=== PATIENT | male | born 1945 | race Caucasian/White ===

== ENCOUNTER 2016-07-01 22:26 | Emergency (ER) | payer OTHER ==
--- NOTE | 2016-07-02 00:43 | ED ORDER SUMMARY ---
..... Patient: CAMILO TINOCO OrderSheet [facility] VisitID: [id number] [address] [place] [address] 71y, M Registration Date/Time: 07/01/2016 ORDER SHEET Weight: 90.7 kg (stated) Allergies: Cats, Codeine GENERAL ORDERS: CBC w Diff Urgent (22:57 07/01/2016 Freya Celis) (23:05 Radha R.N.) CMP Urgent (22:57 07/01/2016 Freya Celis) (23:05 Radha R.N.) TSH Urgent (22:57 07/01/2016 Freya Celis) (23:05 Radha R.N.) MEDICATION ORDERS: IV FLUIDS: Ativan IV 1 mg (HIGH ALERT MEDICATION, NOW) (22:57 07/01/2016 Freya Celis) (Ack 23:05 Radha R.N.) (23:12 Radha R.N.) IV Saline Lock (22:57 07/01/2016 Freya Celis) (23:05 Radha R.N.) ORDER SHEET NOTES: [Electronically signed by Kimmie Bowen R.N. (01:07 07/02/2016)] [Electronically signed by Iván Hsu Dr[address] (06:22 07/02/2016)] [Electronically locked/signed by Kimmie Bowen R.N. (01:07/02/2016)]
--- NOTE | 2016-07-02 00:43 | ED CLINICAL REPORT ---
Clinical Report - Physicians/Mid Levels [facility] [address] [place] [address] 07/01/2016 22:27 Patient: CAMILO TINOCO Time Seen: 2247; initial patient contact. Arrived- By private vehicle. Historian- patient. HISTORY OF PRESENT ILLNESS Chief Complaint: BLOOD PRESSURE ELEVATED. This started today and is still present and worsening. It was abrupt in onset and has been constant but is not gone now. At its maximum, severity described as severe. When seen in the E.D., severity described as severe. Modifying factors. Not worsened by anything. Not relieved by anything. No current or associated symptoms. (reports no pain or discomfort at this time. Patient first no shortness of breath. States that he was seen in the clinic. Patient states that he was told to increase his blood pressure medication however was not given any medication in the office for the acutely elevated blood pressure. Patient states that the blood pressure was 170 - 180 systolic.). Similar symptoms previously: None. Recent medical care: The patient was seen recently in a clinic. REVIEW OF SYSTEMS No fever, difficulty breathing, chest pain or headache. All systems otherwise negative, except as recorded above. PAST HISTORY See nurses notes. Medications: Viagra Oral (Tablet 25 mg) 1 tablet, as needed. Aspirin Childrens Oral (Tablet Chewable 81 mg) 1 tablet. ALPRAZolam Oral (Tablet 0.25 mg) 1 tablet, 3x a day as needed. Lisinopril Oral (Tablet 30 mg) 1 tablet, daily. Atorvastatin Calcium Oral (Tablet 40 mg) 1 tablet, daily. Atenolol Oral (Tablet 50 mg) 1 tablet, 2x a day. Lisinopril Oral (Tablet 10 mg) 1 tablet, daily. Allergies: Cats. Codeine.(nausea). SOCIAL HISTORY Never smoker. No alcohol use or drug use. No recent travel. 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 ADDITIONAL NOTES The nursing notes have been reviewed. PHYSICAL EXAM Vital Signs: 07/01/2016 22:43 BP: 214/86. HR: 85. RR: 16. O2 saturation: 97%. Temp: 97.9 F. Pain level now: 0/10. Hypertensive. Oxygen saturation normal. Appearance: Alert. No acute distress. Eyes: Pupils equal, round and reactive to light. Eyes normal inspection. (No papilledema. Normal appearing retina vasculature. No cell and flare.). ENT: Ears normal. Nose normal. Pharynx normal. Neck: Normal inspection. Neck supple. CVS: Normal heart rate and rhythm. Heart sounds normal. Pulses normal. Respiratory: No respiratory distress. Breath sounds normal. Chest nontender. Abdomen: No visible injury. Soft and nontender. Bowel sounds normal. No mass. Skin: Skin warm and dry. Normal skin color. No rash. Normal skin turgor. Extremities: Extremities exhibit normal ROM. No lower extremity edema. Neuro: Oriented X 3. No motor deficit. No sensory deficit. LABS, X-RAYS, AND EKG Laboratory Tests: CBC w Diff: (CLAIRE: 07/01/2016 23:00) ( [facility] 07/01/2016 23:14) Final results Test Result Flag Units (Reference) WHITE BLOOD COUNT 5.3 K/uL (4.5-11.5) RED BLOOD COUNT 4.61 M/uL (4.50-5.90) HEMOGLOBIN 14.0 gm/dL (13.5-17.5) HEMATOCRIT 41.3 % (41.0-53.0) MEAN CELL VOLUME 90 fL (80-100) MEAN CORPUSCULAR HGB 30 pg (26-34) MEAN CORPUSCULAR HGB CONC 34 g/dL (31-37) RED CELL DISTRIBUTION WIDTH 12.7 % (11.6-14.8) PLATELET COUNT 186 K/uL (150-400) LYMPH % 32.3 % (25-40) MONO % 4.9 % (3-14) GRANULOCYTE % 62.8 CMP: (CLAIRE: 07/01/2016 23:00) ( [facility] 07/01/2016 23:35) Final results Test Result Flag Units (Reference) GLUCOSE 143 H mg/dL (70-110) BUN 13 mg/dL (7-18) CREATININE 0.8 mg/dL (0.6-1.3) Estimated GFR >60 mL/min Estimated GFR- >60 mL/min Note: Persistent reduction over 3 months in eGFR<60 mL/min/1.73 m2 defines CKD. Patients with eGFR values>=60 mL/min/1.73 m2 may also have CKD if evidence ofpersistent proteinuria. Additional information may be foundat www.kidney.org. SODIUM 146 H mmol/L (136-145) POTASSIUM 3.2 L mmol/L (3.5-5.1) CHLORIDE 109 H mmol/L (98-107) CARBON DIOXIDE 27 mmol/L (21-32) CALCIUM 8.2 L mg/dL (8.5-10.1) TOTAL PROTEIN 6.9 g/dL (6.4-8.2) ALBUMIN 3.5 g/dL (3.3-5.0) BILIRUBIN, TOTAL 0.5 mg/dL (0.0-1.0) ALKALINE PHOSPHATASE 66 U/L (46-116) AST (SGOT) 20 U/L (15-37) ALT (SGPT) 43 U/L (12-78) THYROID STIMULATING HORMONE 1.171 uIU/mL (0.30-3.74) . PROGRESS AND PROCEDURES Course of Care: The patient is a pleasant 71-year-old male presented for evaluation of elevated blood pressure. Patient also with history of anxiety. Because of the patient's symptoms here in the emergency department, will evaluate the patient for any signs of end organ damage. Examination is otherwise benign. Patient be evaluated with laboratory studies including a CBC and CMP. Have been as been provided because of the patient's reported anxiety. Also suspect the patient's blood pressure improved with the Ativan. Patient's workup was noted for the findings above. No acute abnormalities noted. Patient reports significant improvement with his blood pressure because he states he's been watching the monitor since arrival in the emergency department. Blood pressure is noted to be significantly improved. Patient continues to have a normal neurological examination. No signs of acute end organ damage. Patient is stable outpatient candidate. Had long discussion patient in regards to blood pressure management in the emergency department versus a clinic. Do not feel the benefits of modifying blood pressure medication here in the emergency Department outweighs the risks. Discussed the patient possible transient hypertension in the emergency department and it would be concern for precipitating hypotension while at home and subsequent injury. Recommended patient have his blood pressure medications changed by his primary care Dr. Also recommended patient start a blood pressure diary. Furthermore discussed with the patient is workup in the emergency department coming diagnosis, home care, follow-up, and return precautions. All questions have been answered. The patient expressed understanding of these instructions and was agreeable to them. Disposition: Discharged. Condition: good. CLINICAL IMPRESSION 07/01/2016 23:56 BP: 168/89. HR: 74. RR: 18. O2 saturation: 96%. Pain level now: 0/10. Hypertensive. Oxygen saturation normal. Uncontrolled hypertension with hypertensive crisis (acute). Anxiety reaction (acute). INSTRUCTIONS Warnings: GENERAL WARNINGS: Return or contact your physician immediately if your condition worsens or changes unexpectedly, if not improving as expected, or if other problems arise. Specifically return if pain, vomiting, bleeding, breathing difficulty or fever. Your Current Medications: CONTINUE TAKING THE FOLLOWING MEDICATIONS: ALPRAZolam Oral : Tablet 0.25 mg, 1 tablet 3x a day, prn. Aspirin Childrens Oral : Tablet Chewable 81 mg, 1 tablet. Atenolol Oral : Tablet 50 mg, 1 tablet 2x a day. Atorvastatin Calcium Oral : Tablet 40 mg, 1 tablet daily. Lisinopril Oral : Tablet 30 mg, 1 tablet daily. Lisinopril Oral : Tablet 10 mg, 1 tablet daily. Viagra Oral : Tablet 25 mg, 1 tablet, prn. Follow-up: Return to the emergency department as needed. Follow up with your doctor in three days. Reason for referral: recheck today's concerns. Summary of care provided to patient via paper. Screening today revealed the patient's blood pressure to be in the normal range. The patient should follow up with a primary care provider for blood pressure management. Understanding of the discharge instructions verbalized by patient. (Electronically signed by Iván Hsu Dr. 07/02/2016 6:22)
--- NOTE | 2016-07-02 00:43 | ED ORDER SUMMARY ---
..... Patient: CAMILO TINOCO OrderSheet [facility] VisitID: [id number] [address] [place] [address] 71y, M Registration Date/Time: 07/01/2016 ORDER SHEET Weight: 90.7 kg (stated) Allergies: Cats, Codeine GENERAL ORDERS: CBC w Diff Urgent (22:57 07/01/2016 Freya Celis) (23:05 Radha R.N.) CMP Urgent (22:57 07/01/2016 Freya Celis) (23:05 Radha R.N.) TSH Urgent (22:57 07/01/2016 Freya Celis) (23:05 Radha R.N.) MEDICATION ORDERS: IV FLUIDS: Ativan IV 1 mg (HIGH ALERT MEDICATION, NOW) (22:57 07/01/2016 Freya Celis) (Ack 23:05 Radha R.N.) (23:12 Radha R.N.) IV Saline Lock (22:57 07/01/2016 Freya Celis) (23:05 Radha R.N.) ORDER SHEET NOTES: [Electronically signed by Kimmie Bowen R.N. (01:07 07/02/2016)] [Electronically signed by Iván Hsu Dr[address] (06:22 07/02/2016)] [Electronically locked/signed by Kimmie Bowen R.N. (01:07/02/2016)]
--- NOTE | 2016-07-02 00:43 | ED NURSING NOTES ---
Clinical Report - Nurses [facility] [address] [place] [address] 07/01/2016 22:27 Patient: CAMILO TINOCO TRIAGE Triage time 22:42 Jul 01 2016. Acuity: LEVEL 3. Chief Complaint: (Elevated BP, was at the [facility] today and they sent him here). 22:50 07/01/16. SEPSIS SCREEN: Sepsis Screen. Negative (no infection suspected/documented). ELIECER COMA SCORE: Eliecer Coma Scale: 15- eyes open spontaneously (4); best verbal response- oriented x 4 (5); best motor response- obeys commands (6). --22:50 Kimmie Bowen R.N. 22:43 07/01/16. BP: 214/86 (regular adult cuff) taken on the left arm. HR: 85. RR: 16. O2 saturation: 97% on room air. Temp: 97.9 F (oral). Pain level now: 0/10. --22:50 Kimmie Bowen R.N. Weight: 90.7 kg stated. Height/Length: 70 inches Per Patient. BMI: 28.7. --22:47 Kimmie Bowen R.N. Medications Lisinopril Oral (Tablet 10 mg) 1 tablet, daily. --22:45 Kimmie Bowen R.N. Atenolol Oral (Tablet 50 mg) 1 tablet, 2x a day. --22:45 Kimmie Bowen R.N. Atorvastatin Calcium Oral (Tablet 40 mg) 1 tablet, daily. --22:45 Kimmie Bowen R.N. Lisinopril Oral (Tablet 30 mg) 1 tablet, daily. --22:45 Kimmie Bowen R.N. ALPRAZolam Oral (Tablet 0.25 mg) 1 tablet, 3x a day as needed. --22:46 Kimmie Bowen R.N. Aspirin Childrens Oral (Tablet Chewable 81 mg) 1 tablet. --22:46 Kimmie Bowen R.N. Viagra Oral (Tablet 25 mg) 1 tablet, as needed. --22:47 Kimmie Bowen R.N. Allergies Cats. Codeine.(nausea) --22:44 Kimmie Bowen R.N. History Arrived by private vehicle. Historian: patient. Accompanied by family. Primary physician ([facility]). This started today. ( itching in feet and hands. Pain in middle of back). 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 PAST MEDICAL HX: Hypertension. SOCIAL HX: Smoker- current status unknown. Occasional alcohol use; consumes beer daily. Patient smells of ETOH in the emergency department. No drug use. No infectious disease exposure. ABUSE ASSESSMENT: No report of abuse. --22:50 Kimmie Bowen R.N. PROBLEMS: Coronary Artery Disease. Back Pain. Chest Pain. Panic attacks . Hypercholesterolemia. Vertigo . --22:47 Kimmie Bowen R.N. ADDITIONAL SURGERIES: Carotid Surgery. Coronary Artery Bypass Graft. Hernial lt groin. Skin grafts to lt leg . Stents . --22:47 Kimmie Bowen R.N. Interventions ID band on patient. To treatment room. --22:50 Kimmie Bowen R.N. PHYSICAL ASSESSMENT 22:51 07/01/16. To room via stretcher. Patient gowned. GENERAL / NEURO / PSYCH: Alert. Oriented X 4. HEENT: Pupils equal, round and reactive to light. No facial asymmetry noted. Mucous membranes are pink. RESPIRATORY: Respirations not labored. Chest nontender. Breath sounds within normal limits. CVS: Capillary refill less than 2 seconds. Pulses within normal limits. GI / : Abdomen soft and nontender and normal bowel sounds. SKIN: Skin intact. Skin is warm. Normal skin turgor. --22:51 Kimmie Bowen R.N. NURSING PROGRESS NOTES 22:51 07/01/16. The plan of care for this patient has been created. Monitoring of patient in place. Head of bed elevated. Reassurance given. Two patient identifiers checked. Call light placed in reach. Bed placed in lowest position. Brakes of bed on. Patient ready for evaluation- chart flagged and ED physician notified. --22:51 Kimmie Bowen R.N. 23:05 07/01/2016 Site #1 started via IV in the right antecubital space with an 20g angiocath, with aseptic technique and good blood return; one attempt. Blood drawn: rainbow set. Labeled in the presence of the patient and sent to the lab. Saline lock flushed with 10 mL saline. --23:05 Kimmie Bowen R.N. 23:12 07/01/2016 Ativan (LORazepam) IVP 1 mg given over 1 minute(s) via site #1. Allergies verified, confirmed 5 rights and sedative warning given to the patient. IV patency established. IV site checked: no pain, redness, or swelling. IV flushed thoroughly pre- and post-medication administration. IVP given by RN. --23:12 Kimmie Bowen R.N. 23:56 07/01/16. BP: 168/89 (regular adult cuff) taken on the left arm. HR: 74. RR: 18. O2 saturation: 96% on room air. Pain level now: 0/10. --23:58 Kimmie Bowen R.N. 23:00 07/01/16. BP: 211/89 (regular adult cuff) taken on the left arm. HR: 72. RR: 18. O2 saturation: 96% on room air. Pain level now: 0/10. --23:59 Kimmie Bowen R.N. DISPOSITION / DISCHARGE 00:54 07/02/2016 Site #1 removed upon discharge. Bandaid applied. --00:54 Kimmie Bowen R.N. 00:54 07/02/16. Departure time: 00:Jul 02 2016. Condition at departure: improved. No learning barriers present. Discharge instructions provided and reviewed with the patient. Reviewed warnings (Lower BP). Patient verbalized understanding. Written instructions provided in Armenian. The patient was discharged by the physician. He was discharged home and accompanied by spouse. He left the Emergency Department ambulatory and via private vehicle. Spouse driving. --00:54 Kimmie Bowen R.N. 00:50 07/02/16. BP: 172/79 (regular adult cuff) taken on the left arm. HR: 81. RR: 18. O2 saturation: 94% on room air. Temp: 98.4 F (oral). Pain level now: 0/10. --00:54 Kimmie Bowen R.N. Locked/Released at 07/02/2016 1:07 by Kimmie Bowen R.N.
--- NOTE | 2016-07-02 00:43 | ED NURSING NOTES ---
Clinical Report - Nurses [facility] [address] [place] [address] 07/01/2016 22:27 Patient: CAMILO TINOCO TRIAGE Triage time 22:42 Jul 01 2016. Acuity: LEVEL 3. Chief Complaint: (Elevated BP, was at the [facility] today and they sent him here). 22:50 07/01/16. SEPSIS SCREEN: Sepsis Screen. Negative (no infection suspected/documented). ELIECER COMA SCORE: Eliecer Coma Scale: 15- eyes open spontaneously (4); best verbal response- oriented x 4 (5); best motor response- obeys commands (6). --22:50 Kimmie Bowen R.N. 22:43 07/01/16. BP: 214/86 (regular adult cuff) taken on the left arm. HR: 85. RR: 16. O2 saturation: 97% on room air. Temp: 97.9 F (oral). Pain level now: 0/10. --22:50 Kimmie Bowen R.N. Weight: 90.7 kg stated. Height/Length: 70 inches Per Patient. BMI: 28.7. --22:47 Kimmie Bowen R.N. Medications Lisinopril Oral (Tablet 10 mg) 1 tablet, daily. --22:45 Kimmie Bowen R.N. Atenolol Oral (Tablet 50 mg) 1 tablet, 2x a day. --22:45 Kimmie Bowen R.N. Atorvastatin Calcium Oral (Tablet 40 mg) 1 tablet, daily. --22:45 Kimmie Bowen R.N. Lisinopril Oral (Tablet 30 mg) 1 tablet, daily. --22:45 Kimmie Bowen R.N. ALPRAZolam Oral (Tablet 0.25 mg) 1 tablet, 3x a day as needed. --22:46 Kimmie Bowen R.N. Aspirin Childrens Oral (Tablet Chewable 81 mg) 1 tablet. --22:46 Kimmie Bowen R.N. Viagra Oral (Tablet 25 mg) 1 tablet, as needed. --22:47 Kimmie Bowen R.N. Allergies Cats. Codeine.(nausea) --22:44 Kimmie Bowen R.N. History Arrived by private vehicle. Historian: patient. Accompanied by family. Primary physician ([facility]). This started today. ( itching in feet and hands. Pain in middle of back). 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 PAST MEDICAL HX: Hypertension. SOCIAL HX: Smoker- current status unknown. Occasional alcohol use; consumes beer daily. Patient smells of ETOH in the emergency department. No drug use. No infectious disease exposure. ABUSE ASSESSMENT: No report of abuse. --22:50 Kimmie Bowen R.N. PROBLEMS: Coronary Artery Disease. Back Pain. Chest Pain. Panic attacks . Hypercholesterolemia. Vertigo . --22:47 Kimmie Bowen R.N. ADDITIONAL SURGERIES: Carotid Surgery. Coronary Artery Bypass Graft. Hernial lt groin. Skin grafts to lt leg . Stents . --22:47 Kimmie Bowen R.N. Interventions ID band on patient. To treatment room. --22:50 Kimmie Bowen R.N. PHYSICAL ASSESSMENT 22:51 07/01/16. To room via stretcher. Patient gowned. GENERAL / NEURO / PSYCH: Alert. Oriented X 4. HEENT: Pupils equal, round and reactive to light. No facial asymmetry noted. Mucous membranes are pink. RESPIRATORY: Respirations not labored. Chest nontender. Breath sounds within normal limits. CVS: Capillary refill less than 2 seconds. Pulses within normal limits. GI / : Abdomen soft and nontender and normal bowel sounds. SKIN: Skin intact. Skin is warm. Normal skin turgor. --22:51 Kimmie Bowen R.N. NURSING PROGRESS NOTES 22:51 07/01/16. The plan of care for this patient has been created. Monitoring of patient in place. Head of bed elevated. Reassurance given. Two patient identifiers checked. Call light placed in reach. Bed placed in lowest position. Brakes of bed on. Patient ready for evaluation- chart flagged and ED physician notified. --22:51 Kimmie Bowen R.N. 23:05 07/01/2016 Site #1 started via IV in the right antecubital space with an 20g angiocath, with aseptic technique and good blood return; one attempt. Blood drawn: rainbow set. Labeled in the presence of the patient and sent to the lab. Saline lock flushed with 10 mL saline. --23:05 Kimmie Bowen R.N. 23:12 07/01/2016 Ativan (LORazepam) IVP 1 mg given over 1 minute(s) via site #1. Allergies verified, confirmed 5 rights and sedative warning given to the patient. IV patency established. IV site checked: no pain, redness, or swelling. IV flushed thoroughly pre- and post-medication administration. IVP given by RN. --23:12 Kimmie Bowen R.N. 23:56 07/01/16. BP: 168/89 (regular adult cuff) taken on the left arm. HR: 74. RR: 18. O2 saturation: 96% on room air. Pain level now: 0/10. --23:58 Kimmie Bowen R.N. 23:00 07/01/16. BP: 211/89 (regular adult cuff) taken on the left arm. HR: 72. RR: 18. O2 saturation: 96% on room air. Pain level now: 0/10. --23:59 Kimmie Bowen R.N. DISPOSITION / DISCHARGE 00:54 07/02/2016 Site #1 removed upon discharge. Bandaid applied. --00:54 Kimmie Bowen R.N. 00:54 07/02/16. Departure time: 00:Jul 02 2016. Condition at departure: improved. No learning barriers present. Discharge instructions provided and reviewed with the patient. Reviewed warnings (Lower BP). Patient verbalized understanding. Written instructions provided in [employer]. The patient was discharged by the physician. He was discharged home and accompanied by spouse. He left the Emergency Department ambulatory and via private vehicle. Spouse driving. --00:54 Kimmie Bowen R.N. 00:50 07/02/16. BP: 172/79 (regular adult cuff) taken on the left arm. HR: 81. RR: 18. O2 saturation: 94% on room air. Temp: 98.4 F (oral). Pain level now: 0/10. --00:54 Kimmie Bowen R.N. Locked/Released at 07/02/2016 1:07 by Kimmie Bowen R.N.
--- NOTE | 2016-07-02 06:22 | ED MAR SUMMARY ---
..... Medication Administration Record [facility] [address] [place] [address] Patient: CAMILO TINOCO Visit ID: [id number] 71y, M Weight: 90.7 kg Height/Length: 70 in BMI: 28.7 ALLERGIES: Cats, Codeine Given 23:12 07/01/2016 Kimmie Bowen R.N. Medication Administered: ATIVAN [IVP] (LORAZEPAM), Dose: 1 mg IVP over 1 minute(s), Site: #1 right AC. Medication Ordered: Ativan IV 1 mg (HIGH ALERT MEDICATION, NOW).
--- NOTE | 2016-07-02 06:22 | ED MED RECONCILIATION SUMMARY ---
Patient: CAMILO TINOCO Medication Reconciliation Report [facility] VisitID: [id number] [address] [place] [address] 71y, M Registration Date/Time: 07/01/2016 Weight: 90.7 kg Height/Length: 70 in. BMI: 28.7 ALLERGIES: Cats, Codeine The patient's Home Medications are listed below: CONTINUE TAKING THE FOLLOWING MEDICATIONS: ALPRAZolam Oral (0.25 mg) 1 tablet, 3x a day Aspirin Childrens Oral (81 mg) 1 tablet Atenolol Oral (50 mg) 1 tablet, 2x a day Atorvastatin Calcium Oral (40 mg) 1 tablet, daily Lisinopril Oral (30 mg) 1 tablet, daily Lisinopril Oral (10 mg) 1 tablet, daily Viagra Oral (25 mg) 1 tablet The source(s) of the original Home Medication information: Not obtained. The following Medications were given to the patient in the Emergency Department: Ativan [IVP] IVP 1 mg, administered: 07/01/2016 11:12:00 PM The following Medications were prescribed to the patient: None.
--- NOTE | 2016-07-02 06:22 | ED DISCHARGE INSTRUCTIONS ---
Patient: CAMILO TINOCO General Instructions [facility] VisitID: [id number] [place] [address] 71y, M Registration Date/Time: 07/01/2016 07/01/2016 23:56 BP: 168/89. HR: 74. RR: 18. O2 saturation: 96%. Pain level now: 0/10. Hypertensive. Oxygen saturation normal. Uncontrolled hypertension with hypertensive crisis (acute). Anxiety reaction (acute). INSTRUCTIONS Warnings: GENERAL WARNINGS: Return or contact your physician immediately if your condition worsens or changes unexpectedly, if not improving as expected, or if other problems arise. Specifically return if pain, vomiting, bleeding, breathing difficulty or fever. Your Current Medications: CONTINUE TAKING THE FOLLOWING MEDICATIONS: ALPRAZolam Oral : Tablet 0.25 mg, 1 tablet 3x a day, prn. Aspirin Childrens Oral : Tablet Chewable 81 mg, 1 tablet. Atenolol Oral : Tablet 50 mg, 1 tablet 2x a day. Atorvastatin Calcium Oral : Tablet 40 mg, 1 tablet daily. Lisinopril Oral : Tablet 30 mg, 1 tablet daily. Lisinopril Oral : Tablet 10 mg, 1 tablet daily. Viagra Oral : Tablet 25 mg, 1 tablet, prn. Follow-up: Return to the emergency department as needed. Follow up with your doctor in three days. Reason for referral: recheck today's concerns. Summary of care provided to patient via paper. Screening today revealed the patient's blood pressure to be in the normal range. The patient should follow up with a primary care provider for blood pressure management. Understanding of the discharge instructions verbalized by patient. ADDITIONAL INFORMATION Hypertension, Out Of Control (Established) Your blood pressure was unusually high today. This can occur as a result of missing doses of your blood pressure medicine. Some asthma inhalers, decongestants, diet pills, and street drugs such as cocaine and amphetamine can worsen hypertension. An increase in body weight, increase in salt intake, smoking, and caffeine are other causes. Emotional upset or acute pain can cause a sudden rapid rise in blood pressure which may return to normal after a period of rest. A normal blood pressure is less than 140/90. The first (top) number is the systolic pressure. The second (bottom) number is the diastolic pressure. Hypertension exists when either the top number is 140 or higher, OR the bottom number is 90 or higher on repeated measurements. Home Care: All patients with high blood pressure should do the following to lower their pressure. If you are on blood pressure medicines, then these methods may reduce or eliminate your need for medicines in the future. Begin a weight-loss program if you are overweight. Reduce your salt intake. Avoid high-salt foods (olives, pickles, smoked meats, salted potato chips, etc.). Do not add salt to your food at the table. Use only small amounts of salt when cooking. Begin an exercise program. Discuss with your doctor what type of exercise program would be best for you. It doesnt have to be difficult. Even brisk walking for 20 minutes3 times a week is a good form of exercise. Avoid medicines which contain heart stimulants. This includes many cold and sinus decongestant pills and sprays as well as diet pills. Check the warnings about hypertension on the label. Stimulants such as amphetamine or cocaine could be lethal for someone with hypertension. Never take these. Limit your caffeine intake or switch to decaf. Stop smoking. If you are a long-time smoker, this can be hard. Enroll in a stop-smoking program to improve your chance of success. Talk to your physician about ways to improve your chance of success. Learning how to handle stress better is an important part of any program to lower blood pressure. Learn about relaxation methods such as meditation, yoga, or biofeedback. If medicines were prescribed, take them exactly as directed. Missing doses may cause your blood pressure to get out of control. Consider buying an automatic blood pressure machine (available at many pharmacies). Use this to monitor your blood pressure and report to your doctor. Follow Up: Regular visits to your own doctor for blood pressure checks and medicine adjustment is an important part of your care. Make a follow-up appointment as directed by our staff. Get Prompt Medical Attention if any of the following occur: Chest, arm, shoulder, neck, or upper back pain Shortness of breath Severe headache Throbbing or rushing sound in the ears Nosebleed Extreme drowsiness, confusion, or fainting Dizziness or vertigo (dizziness with spinning sensation) Weakness of an arm or leg or one side of the face Difficulty with speech or vision Stress Reaction Anxiety is the feeling we all get when we think something bad might happen. It is a normal response to stress and usually causes only a mild reaction. When anxiety becomes more severe, emotions may interfere with daily life. In some cases, you may not even be aware of what it is youre anxious about! During an anxiety reaction, you may feel like you are helpless, nervous, depressed or irritable. Your body may show signs of anxiety in many ways. You may experience dry mouth, shakiness, dizziness, weakness, trouble breathing, chest pressure, headache, nausea, diarrhea, tiredness, inability to sleep or sexual problems. Home Care: 1) Try to locate the sources of stress in your life. They may not be obvious! These may include: -- Daily hassles of life which pile up (traffic jams, missed appointments, car troubles, etc.) -- Major life changes, both good (new baby, job promotion) and bad (loss of job, loss of loved one) -- Overload: feeling that you have too many responsibilities and can't take care of all of them at once -- Feeling helpless, feeling that your problems are beyond what youre able to solve 2) Notice how your body reacts to stress. Learn to listen to your body signals. This will help you take action before the stress becomes severe. 3) When you can, do something about the source of your stress. (Avoid hassles, limit the amount of change that happens in your life at one time and take a break when you feel overloaded). 4) Unfortunately, many stressful situations cannot be avoided. It is necessary to learn HOW TO MANAGE STRESS better. There are many proven methods that will reduce your anxiety. These include simple things like exercise, good nutrition and adequate rest. Also, there are certain techniques that are helpful: relaxation and breathing exercises, visualization, biofeedback and meditation. For more information about this, consult your doctor or go to a local bookstore and review the many books and tapes available on this subject. Follow Up If you feel that your anxiety is not responding to self-help measures, contact your doctor or make an appointment with a counselor. Get Prompt Medical Attention if any of the following occur: -- Your symptoms get worse -- Chest pain or trouble breathing -- Severe headache not relieved by rest and mild pain reliever -- Rapid or irregular heartbeat, fainting You have been given the following additional information: Hypertension, Established, Out Of Control Anxiety Reaction (Electronically signed by Iván Hsu Dr. 07/02/2016 6:22)
--- NOTE | 2016-07-02 06:22 | ED MED RECONCILIATION SUMMARY ---
Patient: CAMILO TINOCO Medication Reconciliation Report [facility] VisitID: [id number] [address] [place] [address] 71y, M Registration Date/Time: 07/01/2016 Weight: 90.7 kg Height/Length: 70 in. BMI: 28.7 ALLERGIES: Cats, Codeine The patient's Home Medications are listed below: CONTINUE TAKING THE FOLLOWING MEDICATIONS: ALPRAZolam Oral (0.25 mg) 1 tablet, 3x a day Aspirin Childrens Oral (81 mg) 1 tablet Atenolol Oral (50 mg) 1 tablet, 2x a day Atorvastatin Calcium Oral (40 mg) 1 tablet, daily Lisinopril Oral (30 mg) 1 tablet, daily Lisinopril Oral (10 mg) 1 tablet, daily Viagra Oral (25 mg) 1 tablet The source(s) of the original Home Medication information: Not obtained. The following Medications were given to the patient in the Emergency Department: Ativan [IVP] IVP 1 mg, administered: 07/01/2016 11:12:00 PM The following Medications were prescribed to the patient: None.
--- NOTE | 2016-07-02 06:22 | ED MAR SUMMARY ---
..... Medication Administration Record [facility] [address] [place] [address] Patient: CAMILO TINOCO Visit ID: [id number] 71y, M Weight: 90.7 kg Height/Length: 70 in BMI: 28.7 ALLERGIES: Cats, Codeine Given 23:12 07/01/2016 Kimmie Bowen R.N. Medication Administered: ATIVAN [IVP] (LORAZEPAM), Dose: 1 mg IVP over 1 minute(s), Site: #1 right AC. Medication Ordered: Ativan IV 1 mg (HIGH ALERT MEDICATION, NOW).
== END 2016-07-02 00:54 | disposition home or self-care (01) ==
LOC: ED SRH 22:26
DX: I16.9 Hypertensive crisis, unspecified (principal); I10 Essential (primary) hypertension; F41.1 Generalized anxiety disorder; I25.10 Atherosclerotic heart disease of native coronary artery without angina pectoris; E78.00 Pure hypercholesterolemia, unspecified; Z79.82 Long term (current) use of aspirin; Z79.899 Other long term (current) drug therapy; Z88.5 Allergy status to narcotic agent; Z91.09 Other allergy status, other than to drugs and biological substances
CPT/HCPCS: 90100; 93140; 95059